=== PATIENT | male | born 1955 | race Caucasian/White ===

== ENCOUNTER 2016-10-18 14:09 | Observation (INO) | payer MEDICARE, MEDICAID ==
[~2016-10-18] VITALS: Ht 175.3 cm; Wt 100.0 kg
[2016-10-18] MEDS ORDERED: OLANZAPINE 5 MG TABLET PO ONE (16:00)
[2016-10-18 16:32] LABS: HEMOGLOBIN 10.3 g/dL (13.7-18.0)
[2016-10-18 16:47] LABS: BLOOD UREA NITROGEN 10 mg/dL (7-18)
[2016-10-18] MEDS ORDERED: LORazepam 1MG TABLET PO PRN (17:30)
[2016-10-18] MEDS ORDERED: OLANZAPINE 10 MG TABLET PO PRN (17:30)
[2016-10-18] MEDS ORDERED: ACETAMINOPHEN 325 MG TABLET PO PRN (17:30)
[2016-10-18] MEDS ORDERED: HYDROcodone/APAP 5/325 TABLET PO PRN (17:30)
[2016-10-18] MEDS ORDERED: ONDANSETRON ODT 4 MG PO PRN (17:30)
[2016-10-18] MEDS ORDERED: ZIPRASIDONE 20 MG INJ IM PRN (17:30)
[2016-10-18 18:29] LABS: DAU SCREEN DISCLAIMER
[2016-10-18 18:35] VITALS: BP 129/76
[2016-10-18 19:59] VITALS: BP 113/69
[2016-10-18] MEDS: QUETIAPINE 100MG TABLET PO SCH (21:00)
[2016-10-19 07:45] VITALS: BP 126/83
[2016-10-19] MEDS: SENNA/DOCUSATE TABLET PO SCH (09:00)
[2016-10-19] MEDS: QUETIAPINE 200 MG TABLET PO SCH (09:17)
[2016-10-19 19:26] VITALS: BP 125/72
[2016-10-19] MEDS: QUETIAPINE 100MG TABLET PO SCH (20:01)
[2016-10-20 07:39] VITALS: BP 130/77
[2016-10-20] MEDS: QUETIAPINE 200 MG TABLET PO SCH (08:11)
[2016-10-20] MEDS: SENNA/DOCUSATE TABLET PO SCH (08:12)
[2016-10-20 19:28] VITALS: BP 146/88
[2016-10-20] MEDS: QUETIAPINE 100MG TABLET PO SCH (21:17)
[2016-10-21 08:01] VITALS: BP 150/95
[2016-10-21] MEDS: QUETIAPINE 200 MG TABLET PO SCH (08:38)
[2016-10-21] MEDS: SENNA/DOCUSATE TABLET PO SCH (08:38)
[2016-10-21 19:41] VITALS: BP 152/90
[2016-10-21] MEDS: QUETIAPINE 100MG TABLET PO SCH (20:47)
[2016-10-22 07:35] VITALS: BP 151/89
[2016-10-22] MEDS: SENNA/DOCUSATE TABLET PO SCH (07:52)
[2016-10-22] MEDS: QUETIAPINE 200 MG TABLET PO SCH (07:52)
== END 2016-10-22 15:49 ==
LOC: ED 17:05 → EDIP 17:07 → ED 17:15 → 3E 18:30
PROVIDERS: ADMIT Internal Medicine; ATTEND Internal Medicine
DX: R45.851 Suicidal ideations (principal); F20.9 Schizophrenia, unspecified; Z91.19 Patient's noncompliance with other medical treatment and regimen; Z59.0 Homelessness; F17.200 Nicotine dependence, unspecified, uncomplicated; F10.10 Alcohol abuse, uncomplicated; J44.9 Chronic obstructive pulmonary disease, unspecified
CPT/HCPCS: 36415; 80048; 80307; 85025; 99285; G0378

== ENCOUNTER 2016-11-01 02:42 | Observation (INO) | payer MEDICARE, MEDICAID ==
[~2016-11-01] VITALS: Ht 167.6 cm; Wt 95.8 kg
[2016-11-01 04:18] LABS: DAU SCREEN DISCLAIMER
[2016-11-01 04:40] LABS: HEMOGLOBIN 11.7 g/dL (13.7-18.0)
[2016-11-01 04:49] LABS: ASPARTATE AMINO TRANSFERASE 17 U/L (15-37); BLOOD UREA NITROGEN 18 mg/dL (7-18)
[2016-11-01 04:53] LABS: ACETAMINOPHEN < 2 mcg/mL (10-30)
[2016-11-01] MEDS ORDERED: ACETAMINOPHEN 325 MG TABLET PO PRN (07:30)
[2016-11-01] MEDS ORDERED: HYDROcodone/APAP 5/325 TABLET PO PRN (07:30)
[2016-11-01] MEDS ORDERED: OLANZAPINE 10 MG TABLET PO PRN (07:30)
[2016-11-01 07:36] VITALS: BP 164/82
[2016-11-01] MEDS: NICOTINE 21 MG/24 HR PATCH.TD24 TD SCH (08:18)
[2016-11-01] MEDS: ONDANSETRON ODT 4 MG PO PRN ×2 (09:26→20:25)
[2016-11-01] MEDS: INSULIN REGULAR 100 UNITS/ML, 3ML VIAL SQ-INSULIN SCH ×4 (09:29→21:00)
[2016-11-01] MEDS: SENNA/DOCUSATE TABLET PO SCH (09:30)
[2016-11-01] MEDS: LORazepam 1MG TABLET PO PRN ×2 (11:45→16:41)
[2016-11-01] MEDS: LOSARTAN 50MG TABLET PO SCH (12:00)
[2016-11-01] MEDS: GABAPENTIN 300 MG CAPSULE PO SCH ×2 (16:32→21:02)
[2016-11-01] MEDS: metFORMIN 500 MG TABLET PO SCH (16:34)
[2016-11-01 18:59] VITALS: BP 144/88
[2016-11-01] MEDS ORDERED: QUETIAPINE 100MG TABLET PO SCH ×2 (21:00)
[2016-11-02] MEDS: INSULIN REGULAR 100 UNITS/ML, 3ML VIAL SQ-INSULIN SCH ×4 (07:00→11:44)
[2016-11-02] MEDS ORDERED: QUETIAPINE 100MG TABLET PO SCH (08:00)
[2016-11-02 08:04] VITALS: BP 120/76
[2016-11-02] MEDS: GABAPENTIN 300 MG CAPSULE PO SCH ×2 (08:30→16:39)
[2016-11-02] MEDS: LOSARTAN 50MG TABLET PO SCH (08:31)
[2016-11-02] MEDS: metFORMIN 500 MG TABLET PO SCH ×2 (08:32→16:39)
[2016-11-02] MEDS: NICOTINE 21 MG/24 HR PATCH.TD24 TD SCH (08:33)
[2016-11-02] MEDS: SENNA/DOCUSATE TABLET PO SCH (08:35)
[2016-11-02] MEDS ORDERED: DIPHENOXYLATE/ATROPINE TABLET PO PRN (15:30)
[2016-11-02 16:12] VITALS: BP 120/69
[2016-11-02] MEDS ORDERED: QUET100T PO ×2 (16:35)
[2016-11-02] MEDS ORDERED: GABA300C10 PO (16:35)
[2016-11-02] MEDS ORDERED: LOSA50TA2 PO (16:35)
[2016-11-02] MEDS ORDERED: METF500T PO (16:35)
[2016-11-03] MEDS ORDERED: INSULIN REGULAR 100 UNITS/ML, 3ML VIAL SQ-INSULIN SCH (07:30)
== END 2016-11-02 17:58 | disposition still patient (30) ==
LOC: ED 03:14 → EDIP 06:03 → 3E 07:34
PROVIDERS: ADMIT Internal Medicine; ATTEND Internal Medicine
DX: R45.851 Suicidal ideations (principal); F20.9 Schizophrenia, unspecified; I11.0 Hypertensive heart disease with heart failure; E11.65 Type 2 diabetes mellitus with hyperglycemia; F17.200 Nicotine dependence, unspecified, uncomplicated; J44.9 Chronic obstructive pulmonary disease, unspecified; I50.9 Heart failure, unspecified; Z91.19 Patient's noncompliance with other medical treatment and regimen; Z91.14 Patient's other noncompliance with medication regimen
CPT/HCPCS: 36415; 80053; 80307; 80329; 81003; 82962; 85025; 96372; 99285; G0378; Q0162; G0480

== ENCOUNTER 2016-11-21 03:13 | Observation (INO) | payer MEDICARE, MEDICAID ==
[~2016-11-21] VITALS: Ht 167.6 cm; Wt 98.9 kg
[~2016-11-21 03:13] MED LIST: GABA300C10 PO; LOSA50TA2 PO; METF500T PO; QUET100T PO
[2016-11-21] MEDS ORDERED: ARIP2TAB PO (03:54)
[2016-11-21 04:35] LABS: DAU SCREEN DISCLAIMER
[2016-11-21 05:00] LABS: ASPARTATE AMINO TRANSFERASE 11 U/L (15-37); BLOOD UREA NITROGEN 17 mg/dL (7-18)
[2016-11-21 05:05] LABS: ACETAMINOPHEN < 2 mcg/mL (10-30)
[2016-11-21] MEDS ORDERED: QUETIAPINE 25MG TABLET PO ONE (07:00)
[2016-11-21] MEDS ORDERED: ZIPRASIDONE 20MG CAPSULE PO PRN (08:30)
[2016-11-21] MEDS ORDERED: DOCUSATE 100 MG CAPSULE PO PRN (08:30)
[2016-11-21] MEDS ORDERED: ACETAMINOPHEN 325 MG TABLET PO PRN (08:30)
[2016-11-21] MEDS: THIAMINE 100MG TABLET PO SCH (09:07)
[2016-11-21] MEDS: FOLIC ACID 1 MG TABLET PO SCH (09:07)
[2016-11-21] MEDS: MULTIVITAMIN 1 TABLET PO SCH (09:08)
[2016-11-21] MEDS: FUROSEMIDE 20 MG TABLET PO SCH (09:08)
[2016-11-21] MEDS: ENOXAPARIN 40 MG/0.4 ML SQ SCH (09:08)
[2016-11-21] MEDS: FERROUS SULFATE 325 MG TABLET PO SCH (16:42)
[2016-11-21] MEDS: metFORMIN 500 MG TABLET PO SCH (16:42)
[2016-11-21 20:04] VITALS: BP 113/75
[2016-11-21] MEDS: QUETIAPINE 100MG TABLET PO SCH (20:44)
[2016-11-22] MEDS: THIAMINE 100MG TABLET PO SCH (08:03)
[2016-11-22] MEDS: MULTIVITAMIN 1 TABLET PO SCH (08:03)
[2016-11-22] MEDS: FERROUS SULFATE 325 MG TABLET PO SCH ×2 (08:04→17:16)
[2016-11-22] MEDS: metFORMIN 500 MG TABLET PO SCH ×2 (08:04→17:16)
[2016-11-22] MEDS: FUROSEMIDE 20 MG TABLET PO SCH (08:04)
[2016-11-22] MEDS: FOLIC ACID 1 MG TABLET PO SCH (08:04)
[2016-11-22] MEDS: ENOXAPARIN 40 MG/0.4 ML SQ SCH (08:06)
[2016-11-22 08:16] VITALS: BP 102/68
[2016-11-22] MEDS: QUETIAPINE 100MG TABLET PO SCH (20:03)
[2016-11-22 20:24] VITALS: BP 120/78
[2016-11-23 07:34] VITALS: BP 131/84
[2016-11-23] MEDS: THIAMINE 100MG TABLET PO SCH (08:16)
[2016-11-23] MEDS: MULTIVITAMIN 1 TABLET PO SCH (08:16)
[2016-11-23] MEDS: FOLIC ACID 1 MG TABLET PO SCH (08:17)
[2016-11-23] MEDS: FUROSEMIDE 20 MG TABLET PO SCH (08:17)
[2016-11-23] MEDS: metFORMIN 500 MG TABLET PO SCH ×2 (08:17→17:59)
[2016-11-23] MEDS: FERROUS SULFATE 325 MG TABLET PO SCH ×2 (08:17→17:58)
[2016-11-23] MEDS: ENOXAPARIN 40 MG/0.4 ML SQ SCH (08:18)
[2016-11-23 09:58] LABS: BLOOD UREA NITROGEN 13 mg/dL (7-18)
[2016-11-23] MEDS ORDERED: FURO20TA3 PO (15:58)
[2016-11-23] MEDS ORDERED: FERR325T20 PO (15:58)
[2016-11-23] MEDS: GABAPENTIN 100 MG CAPSULE PO SCH ×2 (17:58→21:27)
[2016-11-23 19:39] VITALS: BP 112/76
[2016-11-23] MEDS: QUETIAPINE 100MG TABLET PO SCH (21:27)
[2016-11-24] MEDS: GABAPENTIN 100 MG CAPSULE PO SCH ×4 (06:18→22:47)
[2016-11-24] MEDS: FERROUS SULFATE 325 MG TABLET PO SCH ×2 (08:10→16:30)
[2016-11-24] MEDS: THIAMINE 100MG TABLET PO SCH (08:11)
[2016-11-24] MEDS: metFORMIN 500 MG TABLET PO SCH ×2 (08:11→16:29)
[2016-11-24] MEDS: FOLIC ACID 1 MG TABLET PO SCH (08:11)
[2016-11-24] MEDS: FUROSEMIDE 20 MG TABLET PO SCH (08:11)
[2016-11-24] MEDS: MULTIVITAMIN 1 TABLET PO SCH (08:11)
[2016-11-24] MEDS: ENOXAPARIN 40 MG/0.4 ML SQ SCH (08:13)
[2016-11-24 08:15] VITALS: BP 134/86
[2016-11-24] MEDS ORDERED: ZIPRASIDONE 20MG CAPSULE PO PRN (15:00)
[2016-11-24 19:43] VITALS: BP 126/70
[2016-11-24] MEDS: QUETIAPINE 100MG TABLET PO SCH (22:47)
[2016-11-25] MEDS: GABAPENTIN 100 MG CAPSULE PO SCH ×4 (06:58→20:03)
[2016-11-25 08:00] VITALS: BP 116/83
[2016-11-25] MEDS: ENOXAPARIN 40 MG/0.4 ML SQ SCH (09:00)
[2016-11-25] MEDS: FOLIC ACID 1 MG TABLET PO SCH (09:00)
[2016-11-25] MEDS: metFORMIN 500 MG TABLET PO SCH ×2 (09:00→16:49)
[2016-11-25] MEDS: FERROUS SULFATE 325 MG TABLET PO SCH ×2 (09:03→16:50)
[2016-11-25] MEDS: THIAMINE 100MG TABLET PO SCH (09:04)
[2016-11-25] MEDS: MULTIVITAMIN 1 TABLET PO SCH (09:04)
[2016-11-25] MEDS: FUROSEMIDE 20 MG TABLET PO SCH (09:04)
[2016-11-25 19:00] VITALS: BP 115/76
[2016-11-25] MEDS: QUETIAPINE 100MG TABLET PO SCH (20:03)
[2016-11-26] MEDS: GABAPENTIN 100 MG CAPSULE PO SCH ×2 (06:50→11:40)
[2016-11-26 08:15] VITALS: BP 133/79
[2016-11-26] MEDS: FERROUS SULFATE 325 MG TABLET PO SCH (08:18)
[2016-11-26] MEDS: FOLIC ACID 1 MG TABLET PO SCH (08:18)
[2016-11-26] MEDS: metFORMIN 500 MG TABLET PO SCH (08:18)
[2016-11-26] MEDS: MULTIVITAMIN 1 TABLET PO SCH (08:19)
[2016-11-26] MEDS: THIAMINE 100MG TABLET PO SCH (08:19)
[2016-11-26] MEDS: FUROSEMIDE 20 MG TABLET PO SCH (08:19)
[2016-11-26] MEDS: ENOXAPARIN 40 MG/0.4 ML SQ SCH (08:20)
[2016-11-26] MEDS ORDERED: QUET100T PO (10:51)
[2016-11-26] MEDS ORDERED: GABA100C8 PO (10:51)
== END 2016-11-26 15:34 | disposition home or self-care (01) ==
LOC: ED 04:11 → EDIP 06:42 → 3E 08:51
PROVIDERS: ADMIT Internal Medicine; ATTEND Internal Medicine
DX: R45.851 Suicidal ideations (principal); F20.9 Schizophrenia, unspecified; R44.0 Auditory hallucinations; E11.9 Type 2 diabetes mellitus without complications; E87.1 Hypo-osmolality and hyponatremia; F19.10 Other psychoactive substance abuse, uncomplicated; F10.10 Alcohol abuse, uncomplicated; J45.909 Unspecified asthma, uncomplicated; J44.9 Chronic obstructive pulmonary disease, unspecified; D64.9 Anemia, unspecified; I50.9 Heart failure, unspecified; I11.0 Hypertensive heart disease with heart failure; F17.210 Nicotine dependence, cigarettes, uncomplicated; Z59.0 Homelessness; Z91.5 Personal history of self-harm; Z91.14 Patient's other noncompliance with medication regimen
CPT/HCPCS: 36415; 80048; 80053; 80307; 80329; 82607; 82746; 83540; 83550; 84425; 85025; 93005; 96372; 99285; G0378; J1650; G0480

== ENCOUNTER 2016-11-27 00:40 | Observation (INO) | payer MEDICARE, MEDICAID ==
[~2016-11-27] VITALS: Ht 170.2 cm; Wt 80.0 kg
[~2016-11-27 00:40] MED LIST changes: +ARIP2TAB PO; +FERR325T20 PO; +FURO20TA3 PO; +GABA100C8 PO
[2016-11-27 01:48] LABS: BLOOD UREA NITROGEN 18 mg/dL (7-18)
[2016-11-27 01:52] LABS: ASPARTATE AMINO TRANSFERASE 14 U/L (15-37)
[2016-11-27 01:53] LABS: ACETAMINOPHEN < 2 mcg/mL (10-30)
[2016-11-27 02:10] LABS: DAU SCREEN DISCLAIMER
[2016-11-27] MEDS ORDERED: DOCUSATE 100 MG CAPSULE PO PRN (04:00)
[2016-11-27] MEDS ORDERED: POLYETHYLENE GLYCOL 17 GM PACKET PO PRN (04:00)
[2016-11-27] MEDS ORDERED: BISACODYL 10 MG SUPP PR PRN (04:00)
[2016-11-27] MEDS: NICOTINE 14MG/24 HR PATCH.TD24 TD SCH (04:00)
[2016-11-27] MEDS ORDERED: ACETAMINOPHEN 325 MG TABLET PO PRN (04:00)
[2016-11-27 04:29] VITALS: BP 141/87
[2016-11-27] MEDS ORDERED: INSULIN REGULAR 100 UNITS/ML, 3ML VIAL SQ-INSULIN SCH (07:00)
[2016-11-27 07:34] VITALS: BP 129/79
[2016-11-27] MEDS: GABAPENTIN 100 MG CAPSULE PO SCH ×4 (07:35→21:50)
[2016-11-27] MEDS: FERROUS SULFATE 325 MG TABLET PO SCH ×2 (08:16→16:27)
[2016-11-27] MEDS: metFORMIN 500 MG TABLET PO SCH ×2 (08:16→16:27)
[2016-11-27] MEDS: FUROSEMIDE 20 MG TABLET PO SCH (08:17)
[2016-11-27] MEDS ORDERED: ARIPIPRAZOLE 2 MG TABLET PO SCH (09:00)
[2016-11-27] MEDS ORDERED: LORazepam 1MG TABLET PO PRN (13:00)
[2016-11-27] MEDS ORDERED: LORazepam 1MG TABLET ONE (13:58)
[2016-11-27] MEDS ORDERED: HALOPERIDOL 5 MG/ML IM PRN (16:00)
[2016-11-27] MEDS: QUETIAPINE 100MG TABLET PO SCH ×2 (16:27→21:51)
[2016-11-27 19:34] VITALS: BP 97/64
[2016-11-27] MEDS ORDERED: QUETIAPINE 100MG TABLET PO SCH (21:00)
[2016-11-28] MEDS: GABAPENTIN 100 MG CAPSULE PO SCH ×4 (06:28→20:40)
[2016-11-28] MEDS: HALOPERIDOL 5 MG TABLET PO PRN (07:35)
[2016-11-28 07:43] VITALS: BP 117/82
[2016-11-28] MEDS: metFORMIN 500 MG TABLET PO SCH ×2 (09:39→15:58)
[2016-11-28] MEDS: FERROUS SULFATE 325 MG TABLET PO SCH ×2 (09:39→15:58)
[2016-11-28] MEDS: FUROSEMIDE 20 MG TABLET PO SCH (09:40)
[2016-11-28] MEDS: NICOTINE 14MG/24 HR PATCH.TD24 TD SCH (09:40)
[2016-11-28] MEDS: QUETIAPINE 100MG TABLET PO SCH ×2 (09:40→20:39)
[2016-11-28] MEDS: HEPARIN 5,000 UNITS/ML, 1ML SQ SCH (16:00)
[2016-11-28 19:53] VITALS: BP 131/83
[2016-11-29] MEDS: HALOPERIDOL 5 MG TABLET PO PRN ×2 (02:31→10:31)
[2016-11-29] MEDS: GABAPENTIN 100 MG CAPSULE PO SCH ×4 (06:17→20:51)
[2016-11-29 07:16] VITALS: BP 147/95
[2016-11-29] MEDS: HEPARIN 5,000 UNITS/ML, 1ML SQ SCH ×3 (08:00→16:00)
[2016-11-29] MEDS: NICOTINE 14MG/24 HR PATCH.TD24 TD SCH (08:57)
[2016-11-29] MEDS: FUROSEMIDE 20 MG TABLET PO SCH (08:59)
[2016-11-29] MEDS: QUETIAPINE 100MG TABLET PO SCH ×3 (08:59→20:51)
[2016-11-29] MEDS: FERROUS SULFATE 325 MG TABLET PO SCH ×2 (09:00→17:11)
[2016-11-29] MEDS: metFORMIN 500 MG TABLET PO SCH ×2 (09:00→17:11)
[2016-11-29 19:33] VITALS: BP 126/83
[2016-11-30] MEDS: GABAPENTIN 100 MG CAPSULE PO SCH ×4 (06:22→20:09)
[2016-11-30 07:45] VITALS: BP 155/99
[2016-11-30] MEDS: HEPARIN 5,000 UNITS/ML, 1ML SQ SCH ×3 (08:00→16:00)
[2016-11-30] MEDS: FERROUS SULFATE 325 MG TABLET PO SCH ×2 (08:15→17:15)
[2016-11-30] MEDS: metFORMIN 500 MG TABLET PO SCH ×2 (08:16→17:15)
[2016-11-30] MEDS: FUROSEMIDE 20 MG TABLET PO SCH (08:16)
[2016-11-30] MEDS: QUETIAPINE 100MG TABLET PO SCH ×3 (08:17→20:09)
[2016-11-30] MEDS: NICOTINE 14MG/24 HR PATCH.TD24 TD SCH (08:19)
[2016-11-30] MEDS: HALOPERIDOL 5 MG TABLET PO PRN (15:01)
[2016-11-30 20:02] VITALS: BP 135/88
[2016-12-01] MEDS: GABAPENTIN 100 MG CAPSULE PO SCH ×3 (05:55→15:27)
[2016-12-01 07:15] VITALS: BP 133/93
[2016-12-01] MEDS: HEPARIN 5,000 UNITS/ML, 1ML SQ SCH ×2 (08:00)
[2016-12-01] MEDS: FERROUS SULFATE 325 MG TABLET PO SCH (08:38)
[2016-12-01] MEDS: FUROSEMIDE 20 MG TABLET PO SCH (08:39)
[2016-12-01] MEDS: metFORMIN 500 MG TABLET PO SCH (08:39)
[2016-12-01] MEDS: QUETIAPINE 100MG TABLET PO SCH (08:39)
[2016-12-01] MEDS: NICOTINE 14MG/24 HR PATCH.TD24 TD SCH (08:43)
== END 2016-12-01 15:45 | disposition home or self-care (01) ==
LOC: ED 01:37 → EDIP 03:44 → 3E 04:16
PROVIDERS: ADMIT Internal Medicine
DX: R45.851 Suicidal ideations (principal); F25.9 Schizoaffective disorder, unspecified; J44.9 Chronic obstructive pulmonary disease, unspecified; E11.9 Type 2 diabetes mellitus without complications; I50.9 Heart failure, unspecified; I11.0 Hypertensive heart disease with heart failure; F10.10 Alcohol abuse, uncomplicated; F14.10 Cocaine abuse, uncomplicated; E87.1 Hypo-osmolality and hyponatremia; D64.9 Anemia, unspecified; F17.210 Nicotine dependence, cigarettes, uncomplicated; R45.850 Homicidal ideations; F15.10 Other stimulant abuse, uncomplicated; F31.9 Bipolar disorder, unspecified; Z91.14 Patient's other noncompliance with medication regimen; Z87.11 Personal history of peptic ulcer disease; Z98.890 Other specified postprocedural states; Z81.8 Family history of other mental and behavioral disorders
CPT/HCPCS: 36415; 80053; 80307; 80329; 81003; 85025; 93005; 99285; G0378; G0480

== ENCOUNTER 2016-12-02 08:51 | Emergency (ER) | payer MEDICARE, MEDICAID ==
[~2016-12-02] VITALS: Ht 167.6 cm; Wt 105.0 kg
[2016-12-02 09:14] VITALS: BP 142/82
[2016-12-02 09:34] LABS: BLOOD UREA NITROGEN 16 mg/dL (7-18)
[2016-12-02 09:36] LABS: DAU SCREEN DISCLAIMER
== END 2016-12-02 12:12 | disposition home or self-care (01) ==
LOC: ED 12:06
DX: F31.9 Bipolar disorder, unspecified (principal); J44.9 Chronic obstructive pulmonary disease, unspecified; E11.9 Type 2 diabetes mellitus without complications; I50.9 Heart failure, unspecified
CPT/HCPCS: 36415; 80048; 80307; 80329; 82040; 85025; 99284; G0480

== ENCOUNTER 2016-12-12 02:50 | Emergency (ER) | payer MEDICARE, MEDICAID ==
[~2016-12-12] VITALS: Ht 170.2 cm; Wt 107.0 kg
[2016-12-12 03:19] LABS: DAU SCREEN DISCLAIMER
[2016-12-12 03:27] LABS: ASPARTATE AMINO TRANSFERASE 25 U/L (15-37); BLOOD UREA NITROGEN 15 mg/dL (7-18)
[2016-12-12 03:30] LABS: ACETAMINOPHEN < 2 mcg/mL (10-30)
[2016-12-12 05:35] VITALS: BP 103/79
== END 2016-12-12 09:13 | disposition home or self-care (01) ==
LOC: ED 03:22
DX: F14.10 Cocaine abuse, uncomplicated (principal); F10.10 Alcohol abuse, uncomplicated; F43.10 Post-traumatic stress disorder, unspecified; E11.9 Type 2 diabetes mellitus without complications; F31.9 Bipolar disorder, unspecified; F20.9 Schizophrenia, unspecified; J44.9 Chronic obstructive pulmonary disease, unspecified; I50.9 Heart failure, unspecified; F19.10 Other psychoactive substance abuse, uncomplicated
CPT/HCPCS: 36415; 80053; 80307; 80329; 81003; 85025; 99284; G0480

== ENCOUNTER 2017-12-31 12:57 | Observation (INO) | payer MEDICAID, MEDICARE ==
[~2017-12-31] VITALS: Ht 170.2 cm; Wt 90.0 kg
[~2017-12-31 12:57] MED LIST changes: -ARIP2TAB PO; +ARIP2TAB2 PO; +FERR325T18 PO; -FERR325T20 PO; +GABA-826 PO; -GABA100C8 PO
[2017-12-31 13:58] LABS: BASOPHILS # (AUTO) 0.02 x10^3/uL (0-0.1); BASOPHILS % (AUTO) 0 % (0-1); EOSINOPHILS # (AUTO) 0.05 x10^3/uL (0-0.4); EOSINOPHILS % (AUTO) 1 % (1-7); LYMPHOCYTES # (AUTO) 1.43 x10^3/uL (1-3.4); LYMPHOCYTES % (AUTO) 34 % (22-44); MD NO; MEAN CORPUSCULAR HEMOGLOBIN 30.5 pg (27.5-34.5); MEAN CORPUSCULAR HGB CONC 33.4 g/dL (33.2-36.2); MEAN CORPUSCULAR VOLUME 91.3 fL (81-97); MEAN PLATELET VOLUME 8.7 fL (7.4-10.4); MONOCYTES # (AUTO) 0.21 x10^3/uL (0.2-0.8); MONOCYTES % (AUTO) 5 % (2-9); NEUTROPHILS # (AUTO) 2.53 x10^3/uL (1.8-6.8); NEUTROPHILS % (AUTO) 60 % (42-75); PLATELET COUNT 233 x10^3/uL (130-400); RED CELL DISTRIBUTION WIDTH 14.7 % (9.4-14.8)
[2017-12-31 14:10] LABS: AMPHETAMINE SCREEN, URINE Negative (Negative); METHADONE SCREEN, URINE Negative (Negative); OPIATE SCREEN, URINE Negative (Negative)
[2017-12-31 14:10] LABS: ALBUMIN 3.4 g/dL (3.4-5.0); ANION GAP 6 mmol/L (5-15); CHLORIDE 109 mmol/L (98-107)
[2017-12-31 14:14] LABS: ALANINE AMINOTRANSFERASE 15 U/L (12-78); ALKALINE PHOSPHATASE 62 U/L (45-117); BILIRUBIN,TOTAL 0.2 mg/dL (0.2-1.0); CREATININE 0.62 mg/dL (0.7-1.3); TOTAL PROTEIN 6.8 g/dL (6.4-8.2)
[2017-12-31 14:18] LABS: BARBITURATE SCREEN, URINE Negative (Negative); BENZODIAZEPINE SCREEN, URINE Negative (Negative); CANNABINOID SCREEN, URINE Negative (Negative); COCAINE SCREEN, URINE Negative (Negative)
[2017-12-31 14:25] LABS: ACETAMINOPHEN < 2 mcg/mL (10-30)
[2017-12-31] MEDS ORDERED: QUET300T5 PO (14:55)
[2017-12-31] MEDS ORDERED: LORA2TAB99 PO (14:55)
[2017-12-31] MEDS ORDERED: DIVA500T2 PO (14:55)
[2017-12-31] MEDS ORDERED: HALO5TAB5 PO (14:55)
[2017-12-31] MEDS ORDERED: TRAZ150T62 PO (14:55)
[2017-12-31] MEDS ORDERED: FOLIC ACID 1 MG TABLET ONE (15:56)
[2017-12-31] MEDS ORDERED: ENOXAPARIN 40 MG/0.4 ML ONE (15:56)
[2017-12-31] MEDS ORDERED: THIAMINE 100MG TABLET ONE (15:56)
[2017-12-31] MEDS ORDERED: DOCUSATE 100 MG CAPSULE PO PRN (16:00)
[2017-12-31] MEDS ORDERED: ACETAMINOPHEN 325 MG TABLET PO PRN (16:00)
[2017-12-31] MEDS ORDERED: LORazepam 1MG TABLET PO PRN (16:00)
[2017-12-31] MEDS ORDERED: LORazepam 0.5MG TABLET PO PRN (16:00)
[2017-12-31] MEDS ORDERED: NICOTINE 14MG/24 HR PATCH.TD24 TD SCH (16:00)
[2017-12-31] MEDS ORDERED: ONDANSETRON ODT 4 MG PO PRN (16:00)
[2017-12-31] MEDS: THIAMINE 100MG TABLET PO SCH (16:45)
[2017-12-31] MEDS: MULTIVIT.W/IRON, MINERALS ORAL SOL PO SCH (16:45)
[2017-12-31] MEDS: FOLIC ACID 1 MG TABLET PO SCH (16:45)
[2017-12-31] MEDS: ENOXAPARIN 40 MG/0.4 ML SQ SCH ×2 (16:45→16:47)
[2017-12-31 17:15] LABS: HEMOGLOBIN A1C 6.2 % (4.2-6.3)
[2018-01-01 07:34] VITALS: BP 131/89
[2018-01-01] MEDS: INSULIN LISPRO 100 UNITS/ML, PEN SQ-INSULIN SCH ×3 (07:36→07:55)
[2018-01-01] MEDS: FOLIC ACID 1 MG TABLET PO SCH (09:00)
[2018-01-01] MEDS: MULTIVIT.W/IRON, MINERALS ORAL SOL PO SCH (09:00)
[2018-01-01] MEDS: THIAMINE 100MG TABLET PO SCH (09:00)
[2018-01-01] MEDS ORDERED: FUROSEMIDE 20 MG TABLET PO SCH (09:00)
[2018-01-01] MEDS ORDERED: DIVALPROEX 500 MG TABLET.DR PO SCH (10:30)
[2018-01-01] MEDS ORDERED: TEMPLATE NON-FORMULARY MED. (Quetiapine Fumarate** (Seroquel**) 300 MG) PO SCH (10:30)
[2018-01-01] MEDS ORDERED: ARIPIPRAZOLE 2 MG TABLET PO SCH (10:30)
[2018-01-01] MEDS ORDERED: HALOPERIDOL 5 MG TABLET PO SCH (10:30)
[2018-01-01] MEDS ORDERED: GABAPENTIN 100 MG CAPSULE PO SCH (11:00)
[2018-01-01] MEDS ORDERED: metFORMIN 500 MG TABLET PO SCH (17:00)
[2018-01-01] MEDS ORDERED: FERROUS SULFATE 325 MG TABLET PO SCH (17:00)
[2018-01-01] MEDS ORDERED: TRAZODONE 150MG TABLET PO SCH (21:00)
== END 2018-01-01 12:13 | disposition left against medical advice (07) ==
LOC: ED 15:12 → UNDOADMOB 15:13 → EDIP 15:13 → 3NE 15:52 → ED 16:02
PROVIDERS: ADMIT Hospitalist; ATTEND Hospitalist
DX: R45.851 Suicidal ideations (principal); R44.0 Auditory hallucinations; D64.9 Anemia, unspecified; F17.200 Nicotine dependence, unspecified, uncomplicated; F31.9 Bipolar disorder, unspecified; F43.10 Post-traumatic stress disorder, unspecified; F60.9 Personality disorder, unspecified; I50.9 Heart failure, unspecified; J44.9 Chronic obstructive pulmonary disease, unspecified
CPT/HCPCS: 36415; 80053; 80307; 80329; 82962; 83036; 84443; 85025; 99285; G0378; 99284; J1650; G0480

== ENCOUNTER 2018-02-11 11:39 | Observation (INO) | payer MEDICARE ==
[~2018-02-11] VITALS: Ht 165.1 cm; Wt 85.0 kg
[~2018-02-11 11:39] MED LIST changes: +DIVA500T2 PO; +HALO5TAB5 PO; +LORA2TAB99 PO; +QUET300T5 PO; +TRAZ150T62 PO
[2018-02-11] MEDS ORDERED: SODIUM CHLORIDE 0.9% 1,000 ML IV ONE (11:52)
[2018-02-11] MEDS ORDERED: SODIUM CHLORIDE FLUSH 10ML SYR IVF ONE ×2 (12:00→14:00)
[2018-02-11] MEDS ORDERED: SODIUM CHLORIDE 0.9% 1,000ML IVBOLUS ONE (12:00)
[2018-02-11 12:19] LABS: BASOPHILS # (AUTO) 0.01 x10^3/uL (0-0.1); BASOPHILS % (AUTO) 0 % (0-1); EOSINOPHILS # (AUTO) 0.04 x10^3/uL (0-0.4); EOSINOPHILS % (AUTO) 1 % (1-7); LYMPHOCYTES # (AUTO) 1.29 x10^3/uL (1-3.4); LYMPHOCYTES % (AUTO) 21 % (22-44); MD NO; MEAN CORPUSCULAR HGB CONC 32.9 g/dL (33.2-36.2); MEAN CORPUSCULAR VOLUME 91.1 fL (81-97); MEAN PLATELET VOLUME 10.8 fL (7.4-10.4); MONOCYTES # (AUTO) 0.57 x10^3/uL (0.2-0.8); MONOCYTES % (AUTO) 9 % (2-9); NEUTROPHILS # (AUTO) 4.21 x10^3/uL (1.8-6.8); NEUTROPHILS % (AUTO) 69 % (42-75); PLATELET COUNT 196 x10^3/uL (130-400); RED BLOOD COUNT 4.03 x10^6/uL (4.38-5.82); RED CELL DISTRIBUTION WIDTH 15.2 % (9.4-14.8)
[2018-02-11 12:28] LABS: INTERNATIONAL NORMALIZED RATIO 1.14 (0.93-1.1); PROTHROMBIN TIME 11.8 Seconds (9.6-11.5)
[2018-02-11 12:33] LABS: ALBUMIN 3.4 g/dL (3.4-5.0); ANION GAP 6 mmol/L (5-15); CALCIUM 8.8 mg/dL (8.5-10.1); CHLORIDE 107 mmol/L (98-107)
[2018-02-11 12:38] LABS: ALANINE AMINOTRANSFERASE 16 U/L (12-78); ALKALINE PHOSPHATASE 71 U/L (45-117); BILIRUBIN,TOTAL 0.4 mg/dL (0.2-1.0); CREATININE 0.97 mg/dL (0.7-1.3); TOTAL PROTEIN 6.7 g/dL (6.4-8.2)
[2018-02-11 13:08] LABS: MICROSCOPIC NOT IND
[2018-02-11 13:13] LABS: CULTURE INDICATED? NO; TROPONIN I < 0.015 ng/mL (0.000-0.045)
[2018-02-11] MEDS ORDERED: OLAN5TAB3 PO (14:33)
[2018-02-11] MEDS ORDERED: LORA2TAB99 PO (14:33)
[2018-02-11] MEDS ORDERED: DIVA500T2 PO (14:33)
[2018-02-11 15:01] LABS: AMPHETAMINE SCREEN, URINE Negative (Negative); BARBITURATE SCREEN, URINE Negative (Negative); BENZODIAZEPINE SCREEN, URINE Negative (Negative); CANNABINOID SCREEN, URINE Negative (Negative); COCAINE SCREEN, URINE Negative (Negative); METHADONE SCREEN, URINE Negative (Negative); OPIATE SCREEN, URINE Negative (Negative)
[2018-02-11] MEDS ORDERED: hydrALAzine 20 MG/ML, 1ML IVPush PRN (15:30)
[2018-02-11] MEDS ORDERED: NITROGLYCERIN 0.4 MG/SPRAY SL PRN (15:30)
[2018-02-11] MEDS ORDERED: ONDANSETRON ODT 4 MG PO PRN (15:30)
[2018-02-11] MEDS ORDERED: ACETAMINOPHEN 325 MG TABLET PO PRN (15:30)
[2018-02-11] MEDS ORDERED: NITROGLYCERIN 0.4 MG BOTTLE (25 TABS) SL PRN (15:30)
[2018-02-11] MEDS ORDERED: DOCUSATE 100 MG CAPSULE PO PRN (15:30)
[2018-02-11] MEDS: HEPARIN 5,000 UNITS/ML, 1ML SQ SCH ×2 (15:30→22:38)
[2018-02-11] MEDS ORDERED: LABETALOL 5MG/ML, 20ML IVPush PRN (15:30)
[2018-02-11] MEDS: DIVALPROEX 500 MG TABLET.DR PO SCH ×2 (16:17→21:00)
[2018-02-11 16:25] VITALS: BP 127/81
[2018-02-11 18:36] LABS: CHOL/HDL RATIO 3.5; LDL/HDL RATIO 2.2 (0.5-3.0)
[2018-02-11 18:59] LABS: HEMOGLOBIN A1C 5.9 % (4.2-6.3)
[2018-02-11 19:20] VITALS: BP 103/71
[2018-02-11] MEDS: QUETIAPINE 100MG TABLET PO SCH (21:00)
[2018-02-12 04:00] VITALS: BP 117/71
[2018-02-12 05:19] LABS: ANION GAP 5 mmol/L (5-15); CALCIUM 8.7 mg/dL (8.5-10.1); CHLORIDE 113 mmol/L (98-107); CREATININE 0.81 mg/dL (0.7-1.3)
[2018-02-12 05:24] LABS: BASOPHILS # (AUTO) 0.02 x10^3/uL (0-0.1); BASOPHILS % (AUTO) 0 % (0-1); EOSINOPHILS # (AUTO) 0.21 x10^3/uL (0-0.4); EOSINOPHILS % (AUTO) 4 % (1-7); LYMPHOCYTES # (AUTO) 1.88 x10^3/uL (1-3.4); LYMPHOCYTES % (AUTO) 38 % (22-44); MD NO; MEAN CORPUSCULAR HEMOGLOBIN 31.1 pg (27.5-34.5); MEAN CORPUSCULAR HGB CONC 33.5 g/dL (33.2-36.2); MEAN CORPUSCULAR VOLUME 92.9 fL (81-97); MEAN PLATELET VOLUME 11.4 fL (7.4-10.4); MONOCYTES # (AUTO) 0.56 x10^3/uL (0.2-0.8); MONOCYTES % (AUTO) 12 % (2-9); NEUTROPHILS # (AUTO) 2.24 x10^3/uL (1.8-6.8); NEUTROPHILS % (AUTO) 46 % (42-75); PLATELET COUNT 151 x10^3/uL (130-400); RED BLOOD COUNT 3.54 x10^6/uL (4.38-5.82); RED CELL DISTRIBUTION WIDTH 15.5 % (9.4-14.8)
[2018-02-12 05:28] LABS: THYROID STIMULATING HORMONE 0.662 mIU/L (0.358-3.740)
[2018-02-12 06:48] VITALS: BP 150/77
[2018-02-12 07:09] LABS: TROPONIN I < 0.015 ng/mL (0.000-0.045)
[2018-02-12] MEDS: HEPARIN 5,000 UNITS/ML, 1ML SQ SCH ×3 (07:30→23:30)
[2018-02-12] MEDS ORDERED: REGADENOSON 0.4 MG/5 ML SYRINGE ONE (08:38)
[2018-02-12] MEDS: OLANZAPINE 5 MG TABLET PO SCH (09:00)
[2018-02-12] MEDS ORDERED: HALOPERIDOL 5 MG/ML IM PRN (09:30)
[2018-02-12] MEDS: QUETIAPINE 100MG TABLET PO SCH ×2 (09:53→19:49)
[2018-02-12] MEDS: DIVALPROEX 500 MG TABLET.DR PO SCH ×3 (09:53→19:47)
[2018-02-12 14:30] VITALS: BP 110/72
[2018-02-13 02:44] VITALS: BP 125/78
[2018-02-13] MEDS: HEPARIN 5,000 UNITS/ML, 1ML SQ SCH ×3 (07:30→23:30)
[2018-02-13] MEDS: DIVALPROEX 500 MG TABLET.DR PO SCH ×3 (09:36→21:10)
[2018-02-13] MEDS: OLANZAPINE 5 MG TABLET PO SCH (09:36)
[2018-02-13] MEDS: QUETIAPINE 100MG TABLET PO SCH ×2 (09:37→21:10)
[2018-02-13 09:39] VITALS: BP 103/57
[2018-02-13 14:40] VITALS: BP 114/81
[2018-02-13 16:19] VITALS: BP 114/81
[2018-02-13 19:09] VITALS: BP 116/77
[2018-02-14 02:21] VITALS: BP 114/75
[2018-02-14 06:39] VITALS: BP 140/84
[2018-02-14] MEDS: HEPARIN 5,000 UNITS/ML, 1ML SQ SCH ×3 (07:30→23:30)
[2018-02-14] MEDS: OLANZAPINE 5 MG TABLET PO SCH (09:00)
[2018-02-14] MEDS: DIVALPROEX 500 MG TABLET.DR PO SCH (09:00)
[2018-02-14] MEDS: QUETIAPINE 100MG TABLET PO SCH (09:00)
[2018-02-14 12:55] VITALS: BP 150/96
[2018-02-14] MEDS: ARIPIPRAZOLE 10 MG TABLET PO SCH (14:29)
[2018-02-14 19:58] VITALS: BP 120/78
[2018-02-14] MEDS: DIVALPROEX 500 MG TAB.ER.24H PO SCH (20:18)
[2018-02-15 01:08] VITALS: BP 140/71
[2018-02-15] MEDS: HEPARIN 5,000 UNITS/ML, 1ML SQ SCH ×3 (07:29→20:27)
[2018-02-15 07:36] VITALS: BP 121/73
[2018-02-15] MEDS: ARIPIPRAZOLE 10 MG TABLET PO SCH (08:16)
[2018-02-15] MEDS ORDERED: DIVALPROEX 500 MG TAB.ER.24H PO SCH (09:00)
[2018-02-15 14:26] VITALS: BP 100/57
[2018-02-15 19:17] VITALS: BP 102/65
[2018-02-15] MEDS: DIVALPROEX 500 MG TAB.ER.24H PO SCH (20:09)
[2018-02-16 02:49] VITALS: BP 101/62
[2018-02-16] MEDS: HEPARIN 5,000 UNITS/ML, 1ML SQ SCH (07:30)
[2018-02-16 07:45] VITALS: BP 113/74
[2018-02-16] MEDS: ARIPIPRAZOLE 10 MG TABLET PO SCH (08:21)
[2018-02-16] MEDS ORDERED: ARIP10TA33 PO (11:25)
[2018-02-16] MEDS ORDERED: DIVA500T4 PO (11:25)
== END 2018-02-16 12:24 | disposition home or self-care (01) ==
LOC: ED 12:40 → INTOOBSV 13:44 → EDIP 13:44 → 5SO 15:49 → 3NE 02-12 11:09
PROVIDERS: ADMIT Hospitalist; ATTEND Hospitalist
DX: F29 Unspecified psychosis not due to a substance or known physiological condition (principal); R45.851 Suicidal ideations; R07.89 Other chest pain; R19.7 Diarrhea, unspecified; R11.10 Vomiting, unspecified; E11.9 Type 2 diabetes mellitus without complications; F25.0 Schizoaffective disorder, bipolar type; F43.10 Post-traumatic stress disorder, unspecified; K52.9 Noninfective gastroenteritis and colitis, unspecified; J44.9 Chronic obstructive pulmonary disease, unspecified; Z91.5 Personal history of self-harm; Z91.19 Patient's noncompliance with other medical treatment and regimen; Z95.5 Presence of coronary angioplasty implant and graft; Z91.14 Patient's other noncompliance with medication regimen; Z59.0 Homelessness; I50.9 Heart failure, unspecified; F17.200 Nicotine dependence, unspecified, uncomplicated; F41.1 Generalized anxiety disorder
CPT/HCPCS: 36415; 74022; 78452; 80048; 80053; 80061; 80307; 81003; 83036; 83605; 83690; 83880; 84443; 84484; 85025; 85610; 85730; 87040; 89055; 93005; 93017; 99285; A9502; C9898; G0378; J2785; J7030